=== PATIENT | female | born 1995 | race Caucasian/White ===

== ENCOUNTER 2017-03-05 00:48 | Inpatient (IN) | payer OTHER ==
[~2017-03-05] VITALS: Ht 162.6 cm; Wt 61.3 kg
[2017-03-05] MEDS ORDERED: SOD CHLORIDE 0.9% 1,000 ML IV STA (01:01)
[2017-03-05 01:05] VITALS: Ht 162.6 cm; Wt 61.3 kg
[2017-03-05 02:10] LABS: BASOPHILS % 0.3 % (0.0-2.0); EOSINOPHILS # 0.2 10^3/ul (0.0-0.5); EOSINOPHILS % 1.7 % (0.0-7.0); HEMATOCRIT 42.3 % (37.0-47.0); HEMOGLOBIN 14.4 g/dl (12.0-16.0); LYMPHOCYTES # 2.5 10^3/ul (0.8-2.9); LYMPHOCYTES % 24.9 % (18.0-55.0); MEAN CORPUSCULAR HEMOGLOBIN 30.5 pg (29.0-33.0); MEAN CORPUSCULAR VOLUME 89.6 fl (72.0-104.0); MEAN PLATELET VOLUME 10.9 fl (7.4-10.4); MONOCYTE # 0.6 10^3/ul (0.3-0.9); MONOCYTES % 5.4 % (0.0-13.0); NEUTROPHIL # 6.9 10^3/ul (1.6-7.5); NEUTROPHILS % 67.5 % (30.0-74.0); PLATELET COUNT 248 10^3/UL (140-415); RED BLOOD COUNT 4.72 10^6/ul (4.20-5.40); RED CELL DISTRIBUTION WIDTH 12.4 % (11.5-14.5); WHITE BLOOD COUNT 10.2 10^3/ul (4.8-10.8)
[2017-03-05 02:32] LABS: URINE BLOOD (Dip) POC 1+ (NEGATIVE)
--- NOTE | 2017-03-05 02:48 | RADRPT ---
PROCEDURE: XR Chest. CLINICAL INDICATION: Chest pain TECHNIQUE: Single frontal view of the chest was obtained COMPARISON: None FINDINGS: The heart and mediastinum are within normal limits. Minimal patchy increased density apparent in right costophrenic angle region could represent patchy pneumonitis. Minimal linear atelectasis/fibrosis in the left mid lung laterally . There is no pleural effusion or pneumothorax. S-shaped curvature of the thoracolumbar spine. ECG l thien projected over the chest. IMPRESSION: Minimal patchy increased density apparent in right costophrenic angle region could represent patchy pneumonitis. Minimal linear atelectasis/fibrosis in the left mid lung laterally . RPTAT: HJES .Antoni Beavers MD, Date Time Electronically viewed and signed by .Antoni Beavers MD, on 03/05/2017 02:48 .S/
[2017-03-05 03:21] LABS: BARBITURATES Negative (NEGATIVE); BENZODIAZEPINES Negative (NEGATIVE); CANNABINOIDS Negative (NEGATIVE); COCAINE Negative (NEGATIVE); OPIATES Negative (NEGATIVE)
[2017-03-05 04:32] LABS: ANION GAP 17 (8-16); BLOOD UREA NITROGEN 21 mg/dl (7-20); CALCIUM 8.9 mg/dl (8.4-10.2); CARBON DIOXIDE 18 mmol/L (21-31); CHLORIDE 111 mmol/L (97-110); CREATININE 0.69 mg/dl (0.44-1.00); GLUCOSE 155 mg/dl (70-220); POTASSIUM 4.3 mmol/L (3.5-5.1); SODIUM 142 mmol/L (135-144)
[2017-03-05 04:49] LABS: TROPONIN-I < 0.012 ng/ml (0.00-0.12)
[2017-03-05] MEDS ORDERED: PIPER-TAZO 3.375 GM IV (PMX) 50 ML IVPB STA (05:33)
--- NOTE | 2017-03-05 05:52 | ERD ---
ER Documentation Chief Complaint Chief Complaint SYNOCAL EPISODE HPI 21-year-old female found to be hypotensive with a syncopal episode. Patient has history of non-endocarditis along with IV drug use in the past. Denies chest pain palpitations fevers chills nausea vomiting or focal neurological complaints. ROS All systems reviewed and are negative except as per history of present illness. Allergies Allergies: Uncoded Allergies: SULFA (Allergy, Unknown, 03/05/17) PMhx/Soc Medical and Surgical Hx: pt denies Surgical Hx History of Surgery: No Anesthesia Reaction: No Hx Neurological Disorder: Yes (SACROILEITIS) Hx Respiratory Disorders: Yes (PE) Hx Cardiac Disorders: No (PE, ENDOCARDITIS) Hx Psychiatric Problems: Yes (DRUG ABUSE) Hx Miscellaneous Medical Probl: Yes (HX OF SEPSIS) Hx Alcohol Use: Yes (OCCASIONAL HARD LIQUOR) Hx Substance Use: Yes (CRYSTAL METH, HEROIN) Hx Tobacco Use: Yes Smoking Status: Current every day smoker Physical Exam Vitals Vital Signs Date Time Temp Pulse Resp B/P Pulse Ox O2 Delivery O2 Flow Rate FiO2 03/05/17 04:52 78 16 85/62 99 Room Air 03/05/17 01:05 98.0 78 18 94/64 97 Room Air 03/05/17 01:05 98.0 78 18 94/64 97 Physical Exam Const: [] Head: Atraumatic Eyes: Normal Conjunctiva ENT: Normal External Ears, Nose and Mouth. Neck: Full range of motion..~ No meningismus. Resp: Clear to auscultation bilaterally Cardio: Regular rate and rhythm, no murmurs Abd: Soft, non tender, non distended. Normal bowel sounds Skin: No petechiae or rashes Back: No midline or flank tenderness Ext: No cyanosis, or edema Neur: Awake and alert Psych: Normal Mood and Affect Result Diagram: 03/05/17 0152 03/05/17 0152 Results 24 hrs Laboratory Tests Test 03/05/17 01:52 03/05/17 02:20 03/05/17 02:30 White Blood Count 10.210^3/ul Red Blood Count 4.7210^6/ul Hemoglobin 14.4g/dl Hematocrit 42.3% Mean Corpuscular Volume 89.6fl Mean Corpuscular Hemoglobin 30.5pg Mean Corpuscular Hemoglobin Concent 34.0g/dl Red Cell Distribution Width 12.4% Platelet Count 56865^3/UL Mean Platelet Volume 10.9fl Neutrophils % 67.5% Lymphocytes % 24.9% Monocytes % 5.4% Eosinophils % 1.7% Basophils % 0.3% Nucleated Red Blood Cells % 0.0/100WBC Neutrophils # 6.910^3/ul Lymphocytes # 2.510^3/ul Monocytes # 0.610^3/ul Eosinophils # 0.210^3/ul Basophils # 0.010^3/ul Nucleated Red Blood Cells # 0.010^3/ul Sodium Level 142mmol/L Potassium Level 4.3mmol/L Chloride Level 111mmol/L Carbon Dioxide Level 18mmol/L Anion Gap 17 Blood Urea Nitrogen 21mg/dl Creatinine 0.69mg/dl Glucose Level 155mg/dl Calcium Level 8.9mg/dl Troponin I < 0.012ng/ml Bedside Glucose 106mg/dL Bedside Urine pH (LAB) 5.0 Bedside Urine Protein (LAB) 2+ Bedside Urine Glucose (UA) Negative Bedside Urine Ketones (LAB) Negative Bedside Urine Blood 1+ Bedside Urine Nitrite (LAB) Negative Bedside Urine Leukocyte Esterase (L Negative Urine Opiates Screen Negative Urine Barbiturates Negative Urine Amphetamines Screen Negative Urine Benzodiazepines Screen Negative Urine Cocaine Screen Negative Urine Cannabinoids Negative Current Medications Medications (Trade) Dose Ordered Sig/Leonid Route PRN Reason Start Time Stop Time Status Last Admin Dose Admin Sodium Chloride 1,000 ml @ 1,000 mls/hr Q1H STAT IV 03/05/17 01:01 03/05/17 02:00 DC 03/05/17 01:01 Vancomycin HCl 250 ml @ 125 mls/hr ONCE ONCE IVPB 03/05/17 06:00 03/05/17 07:59 Piperacillin Sod/ Tazobactam Sod (Zosyn 3.375gm/ 50 ml (Pmx)) 50 ml @ 100 mls/hr ONCE STAT IVPB 03/05/17 05:33 03/05/17 06:02 Procedures/MDM EKG: Rate/Rhythm: [Normal Sinus Rhythm] QRS, ST, T-waves: [No changes consistent w/ acute ischemia] Impression: [No evidence of ischemia or arrhythmia] Chest X-ray 1V Interpreted by me: Soft Tissue: No acute abnormalities Bones: No acute abnormalities Mediastinum/Cardiac Silhouette/Lungs: [No acute abnormalities] Patient's syncopal symptoms are unstable at this time and require inpatient workup. No evidence of PE or dissection at this time but occult ischemia or fatal dysrhythmia cannot be ruled out. Carditis needs to be considered. Blood cultures drawn off. Started on broad-spectrum antibiotics. Admitted to hospitalist. Departure Diagnosis: Primary Impression: Syncope Syncope type: unspecified Qualified Code: R55 - Syncope, unspecified syncope type Condition: Serious ADALID APONTE Mar 05, 2017 05:52
[2017-03-05] MEDS ORDERED: VANCOMYCIN 1 GM (PMX) 250 ML IVPB ONE (06:00)
[2017-03-05] MEDS ORDERED: QUET25TA26 PO (07:58)
[2017-03-05] MEDS ORDERED: BUPR-75 PO (07:59)
[2017-03-05] MEDS ORDERED: ONDANSETRON 4 MG INJ IV PRN ×2 (08:00→14:30)
[2017-03-05] MEDS ORDERED: ACETAMINOPHEN 325 MG TAB PO PRN ×2 (08:00→14:30)
[2017-03-05 12:23] VITALS: TEMP 98
[2017-03-05 14:00] VITALS: BP 90/63; PULSE 84; RESP 20
[2017-03-05 14:08] VITALS: PULSE 81
[2017-03-05] MEDS ORDERED: SOD CHLORIDE 0.9% 1,000 ML IV SCH (14:25)
[2017-03-05] MEDS ORDERED: ACETAMINOPHEN 650 MG SUPP PR PRN (14:30)
[2017-03-05] MEDS ORDERED: NACL 0.9% 3 ML SYG IV SCH (14:30)
[2017-03-05] MEDS ORDERED: DOCUSATE SODIUM 100 MG CAP PO PRN (14:30)
[2017-03-05] MEDS ORDERED: LORAZEPAM 2 MG INJ IV PRN (14:30)
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
[2017-03-05 15:00] VITALS: BP 107/66; PULSE 93; RESP 24
[2017-03-05] MEDS ORDERED: LEVOFLOXACIN 500MG/D5W (PMX) 100 ML IVPB SCH (15:00)
[2017-03-05] MEDS ORDERED: LEVO500T10 PO (15:30)
--- NOTE | 2017-03-05 15:30 | PDOCDIS ---
Discharge Instructions CONDITION Patient Condition: Good HOME CARE INSTRUCTIONS: Diet Instructions: Regular ACTIVITY: Activity Restrictions: No Restrictions FOLLOW UP/APPOINTMENTS Follow-up Plan F/U WITH YOUR PCP IN 1-2 WEEKS AURA PAGE Mar 05, 2017 15:30
[2017-03-05 15:51] LABS: CREATINE KINASE 43 IU/L (23-200)
[2017-03-05 16:04] LABS: CK-MB 0.36 ng/ml (0.0-2.4)
[2017-03-05 16:05] LABS: TROPONIN-I < 0.012 ng/ml (0.00-0.12)
--- NOTE | 2017-03-05 16:07 | DS ---
Date/Time of Note Date/Time of Note DATE: 03/05/17 TIME: 16:01 Discharge Summary Admission/Discharge Info Admit Date/Time Mar 05, 2017 at 07:45 Discharge Date/Time March 05, 2017 Discharge Diagnosis 1. Dizziness secondary to dehydration-resolved with fluids 2. Possible patchy pneumonitis DC with Levaquin 3. Nicotine abuse, current -Cessation advised. 4. Former meth abuser, currently in sober rehab facility. Drug screen was negative 5. History of endocarditis-treated. Currently no issues 6. History of insomnia/psychiatric disorders. -Resume home medications. Patient Condition: Good Hospital Course Patient is 21-year-old female with history of female with a past medical history of methamphetamine abuse, endocarditis from IV drug use, nicotine abuse , who is currently resides in a sober rehab facility, was brought by paramedics to the emergency room for evaluation of sudden onset of dizziness that started last night 10:00 after she took her Seroquel dose. Patient denied loss of consciousness. She did not hit her head or any other part of the body. Patient appears clinically dry was given IV fluids, dizziness did resolve. Patient BP was slightly low but was not tachycardic and she states that her baseline BP is low. Chest x-ray did show a mild patchy increased density apparent in right costophrenic angle region could represent patchy pneumonitis and minimal linear atelectasis/fibrosis in the left mid lung laterally. Of note patient does have a history of a collapsed lung. Patient was asymptomatic upon discharge and was very adamant about going home, patient vitals, labs and physical exam were stable, she had no further complaints and questions are answered. Home Meds Active Scripts Levofloxacin* (Levofloxacin*) 500 Mg Tablet, 500 MG PO DAILY for 5 Days, TAB Prov:AURA PAGE 03/05/17 Reported Medications Bupropion Hcl* (Wellbutrin XL*) 150 Mg Tab.sr.24h, 150 MG PO DAILY, TAB.SA 03/05/17 Quetiapine Fumarate* (Seroquel*) 25 Mg Tablet, 50 MG PO DAILY, #30 TAB 03/05/17 Follow-up Plan F/U WITH YOUR PCP IN 1-2 WEEKS Primary Care Provider Jaren Woodard Time spent on discharge: > 30 minutes AURA PAGE Mar 05, 2017 16:07
[2017-03-05] MEDS ORDERED: NICOTINE (21 MG/24 HR) PATCH TRANSDERM SCH (16:30)
[2017-03-05] MEDS ORDERED: FAMOTIDINE 20 MG TAB PO SCH (21:00)
[2017-03-06] MEDS ORDERED: QUETIAPINE 25 MG TAB PO SCH (09:00)
[2017-03-06] MEDS ORDERED: ASPIRIN 81 MG TAB PO SCH (09:00)
[2017-03-06] MEDS ORDERED: BUPROPION (XL) 150 MG TAB PO SCH (09:00)
== END 2017-03-05 15:58 | disposition home or self-care (01) | DRG 640 ==
LOC: E/R 00:48 → ICU 07:45
PROVIDERS: ADMIT Internal Medicine; ATTEND Internal Medicine
DX: E86.0 Dehydration (principal); J18.9 Pneumonia, unspecified organism; I95.9 Hypotension, unspecified; R55 Syncope and collapse; F17.200 Nicotine dependence, unspecified, uncomplicated; R42 Dizziness and giddiness; Z86.19 Personal history of other infectious and parasitic diseases; Z86.79 Personal history of other diseases of the circulatory system; Z86.59 Personal history of other mental and behavioral disorders
CPT/HCPCS: 36415; 71010; 80048; 80307; 81003; 82550; 82553; 82962; 84484; 85025; 87040; 87081; 93005; 96374; 96375; J2060; J2543; J3370; J7030

== ENCOUNTER 2017-05-08 21:15 | Emergency (ER) | END 2017-05-09 01:52 | disposition home or self-care (01) ==